=== PATIENT | female | born 1990 | race Caucasian/White ===

== ENCOUNTER → 2016-12-30 | Outpatient (CLI) | payer OTHER ==
[~2016-12-30] MED LIST: ADDERALL20 MG PO; ATARAX 25MG25 MG/TAB PO; LAMICTAL150 MG PO
== END ==
LOC: BHSO 14:49
DX: F90.0 Attention-deficit hyperactivity disorder, predominantly inattentive type (principal)

== ENCOUNTER → 2017-08-26 | Outpatient (CLI) | payer BC | LOC: BHSO 08:52 | DX: F90.0 Attention-deficit hyperactivity disorder, predominantly inattentive type (principal) | CPT/HCPCS: G0463 ==

== ENCOUNTER → 2018-09-12 | Outpatient (CLI) | payer BC | LOC: BHSO 09:44 | DX: F90.0 Attention-deficit hyperactivity disorder, predominantly inattentive type (principal) | CPT/HCPCS: G0463 ==

== ENCOUNTER 2018-12-18 19:29 | Emergency (ER) | payer BC ==
[~2018-12-18] VITALS: Ht 160 cm; Wt 76.4 kg
[2018-12-18 19:41] VITALS: BP 161/95; TEMP 97.1
[2018-12-18] MEDS ORDERED: ORSYTHIA 0.02 M1 TAB PO (20:10)
[2018-12-18] MEDS ORDERED: AMOXICILLIN 8751 TAB PO (20:58)
[2018-12-18 21:16] VITALS: PULSE 77
== END 2018-12-18 21:18 | disposition home or self-care (01) ==
LOC: COL.ER 19:29
DX: S51.851A Open bite of right forearm, initial encounter (principal); F90.9 Attention-deficit hyperactivity disorder, unspecified type; F31.9 Bipolar disorder, unspecified; F41.9 Anxiety disorder, unspecified; F17.210 Nicotine dependence, cigarettes, uncomplicated; W54.0XXA Bitten by dog, initial encounter; Y92.410 Unspecified street and highway as the place of occurrence of the external cause
CPT/HCPCS: 90375

== ENCOUNTER 2018-12-25 20:20 | Outpatient (RCR) | payer BC ==
[~2018-12-25 20:20] MED LIST changes: +AMOXICILLIN 8751 TAB PO; +ORSYTHIA 0.02 M1 TAB PO
[2019-01-01 21:25] VITALS: BP 159/86; PULSE 86; TEMP 98.5
== END 2019-03-21 | disposition still patient (30) ==
LOC: COL.ER
DX: Z20.3 Contact with and (suspected) exposure to rabies (principal); Z23 Encounter for immunization

== ENCOUNTER → 2019-03-29 | Outpatient (CLI) | payer BC | LOC: BHSO 11:42 | DX: F90.0 Attention-deficit hyperactivity disorder, predominantly inattentive type (principal) | CPT/HCPCS: G0463 ==

== ENCOUNTER → 2019-09-05 | Outpatient (CLI) | payer BC | LOC: COL.RAD 10:05 | DX: R10.2 Pelvic and perineal pain (principal) ==

== ENCOUNTER → 2019-11-01 | Outpatient (CLI) | payer BC | LOC: BHSO 09:42 | DX: F41.1 Generalized anxiety disorder (principal) | CPT/HCPCS: G0463 ==

== ENCOUNTER → 2020-01-03 | Outpatient (CLI) | payer BC | LOC: BHSO 14:24 | DX: F90.0 Attention-deficit hyperactivity disorder, predominantly inattentive type (principal) | CPT/HCPCS: G0463 ==

== ENCOUNTER → 2020-04-07 | Outpatient (CLI) | payer BC | LOC: BHSO 13:59 | DX: F90.0 Attention-deficit hyperactivity disorder, predominantly inattentive type (principal) | CPT/HCPCS: G0463 ==